=== PATIENT | male | born 1975 | race American Indian/Alaskan Native ===

== ENCOUNTER 2017-04-07 18:06 | Emergency (ER) | payer OTHER ==
[2017-04-07] MEDS ORDERED: TORADOL IM ONE (21:43)
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
[2017-04-08 01:49] VITALS: BP 119/79
== END 2017-04-07 22:12 | disposition home or self-care (01) ==
LOC: ED 18:06
DX: S16.1XXA Strain of muscle, fascia and tendon at neck level, initial encounter (principal); S39.012A Strain of muscle, fascia and tendon of lower back, initial encounter; V49.49XA Driver injured in collision with other motor vehicles in traffic accident, initial encounter; X58.XXXA Exposure to other specified factors, initial encounter; Y93.89 Activity, other specified; Y92.89 Other specified places as the place of occurrence of the external cause; Y99.8 Other external cause status
CPT/HCPCS: 96372; 99282; J1885

== ENCOUNTER 2019-05-24 11:03 | Emergency (ER) | payer OTHER ==
[2019-05-24 11:13] VITALS: BP 120/87
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
== END 2019-05-24 13:11 | disposition home or self-care (01) ==
LOC: ED 11:03
DX: M79.18 Myalgia, other site (principal); M54.2 Cervicalgia
CPT/HCPCS: 99282